=== PATIENT | female | born 1990 | race Caucasian/White ===

== ENCOUNTER 2018-07-26 23:00 | Emergency (ER) | payer OTHER ==
[~2018-07-26] VITALS: Ht 162.6 cm; Wt 49.9 kg
[~2018-07-26 23:00] MED LIST: PNV1TABL25 PO
[2018-07-27] MEDS ORDERED: DIPHTH,PERTUSS(ACELL),TET TOX 0.5 ML DISP.SYRIN. VAX IM ONE
[2018-07-27] MEDS ORDERED: LIDOCAINE/EPI/TETRACAINE TOPICAL GEL 3 ML. TP ONE
[2018-07-27] MEDS ORDERED: ACETAMINOPHEN 500 MG TABLET PO ONE
[2018-07-27] MEDS ORDERED: LIDOCAINE WITH 8.4% SOD BICARB 3 ML DISP.SYRIN. INJ ONE
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
[2018-07-27] MEDS ORDERED: MORPHINE SULFATE 10 MG/ML VIAL. ONE (01:05)
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
[2018-07-27] MEDS ORDERED: ORPH100T PO (01:13)
[2018-07-27] MEDS ORDERED: KETOROLAC 30 MG/ML VIAL. IM ONE (01:15)
[2018-07-27] MEDS ORDERED: ORPHENADRINE CITRATE 60 MG/2 ML VIAL. IM ONE (01:15)
[2018-07-27 01:16] VITALS: BP 115/69
== END 2018-07-27 01:19 | disposition home or self-care (01) ==
LOC: ER 23:00 → EEVIPCON 23:00 → ER 07-27 01:19
DX: S01.01XA Laceration without foreign body of scalp, initial encounter (principal); Z88.0 Allergy status to penicillin; Z88.1 Allergy status to other antibiotic agents; Y04.0XXA Assault by unarmed brawl or fight, initial encounter; Y93.89 Activity, other specified; Y92.89 Other specified places as the place of occurrence of the external cause; Y99.8 Other external cause status
CPT/HCPCS: 12001; 70450; 81025; 90471; 90715; 96372; 99284; J1885; J2360